=== PATIENT | female | born 1960 | race Caucasian/White ===

== ENCOUNTER 2021-07-06 17:15 | Inpatient (IN) ==
[2021-07-06 19:31] LABS: Basophils % 0.2 %; Eosinophils % 0.1 %; Hematocrit 34.1 % (35.3-44.9); Hemoglobin 12.4 g/dL (11.5-15.4); Immature Granulocytes % 0.4 % (0-4); Lymphocytes # 0.9 K/mcL (0.6-4.6); Lymphocytes % 9.2 %; Mean Corpuscular HGB Conc 36.4 g/dL (31.6-35.5); Mean Corpuscular Hemoglobin 28.5 pg (28.0-33.3); Mean Corpuscular Volume 78.4 fL (83.0-100.0); Monocytes % 10.2 %; Neutrophils # 7.8 K/mcL (1.6-8.9); Platelet Count 395 K/mcL (140-400); Red Blood Count 4.35 M/mcL (3.82-4.97); Segmented Neutrophils % 79.9 %; White Blood Count 9.7 K/mcL (4.3-11.1)
[2021-07-06] MEDS ORDERED: 0.9 % Sodium Chloride 500 ML IVC ONE (19:48)
[2021-07-06] MEDS ORDERED: Ondansetron 4 MG/2 ML VIAL IVP ONE (19:49)
[2021-07-06 20:00] LABS: Alanine Aminotransferase 18 Units/L (7-52); Albumin 4.3 g/dL (3.5-5.7); Albumin/Globulin Ratio 1.9 (1.1-2.2); Alkaline Phosphatase 67 Units/L (34-104); Aspartate Amino Transferase 17 Units/L (13-39); BUN/Creatinine Ratio 24 (6-26); Bilirubin,Direct 0.3 mg/dL (0.0-0.2); Bilirubin,Indirect 1.4 mg/dL (0.0-1.0); Bilirubin,Total 1.7 mg/dL (0.3-1.0); Blood Urea Nitrogen 21 mg/dL (8-23); Carbon Dioxide 28 mEq/L (23-29); Chloride 71 mEq/L (98-107); Globulin 2.3 g/dL (2.4-3.5); Glucose 154 mg/dL (70-105); Osmolality,Calculated 244 (280-300); Potassium 1.9 mEq/L (3.5-5.1); Sodium 114 mEq/L (136-145); Total Protein 6.6 g/dL (6.4-8.9); eGFR For African Americans > 60 (> 60); eGFR For Non-African Americans > 60 (> 60)
[2021-07-06] MEDS ORDERED: Potassium Chloride Elixir 20 MEQ/15 ML UDC PO ONE (20:10)
[2021-07-06 20:23] LABS: Bilirubin,Urine Negative (Negative); Blood,Urine Trace (Negative); Clarity,Urine Clear (Clear); Color,Urine Yellow (Yellow); Glucose,Urine (UA) Normal (Normal); Hyaline Casts,Urine Moderate per lpf (None Seen); Ketones,Urine Trace mg/dL (Negative); Leukocyte Esterase,Urine Negative (Negative); Mucus,Urine Few per lpf (None-Few); Nitrite,Urine Negative (Negative); Protein,Urine 100 mg/dL (Neg-Trace); Renal Epithelial Cells,Urine Few per hpf (None-Few); Specific Gravity,Urine > 1.030 (1.010-1.025); Squamous Epithelial Cell,Urine Few per hpf (None-Few)
[2021-07-06] MEDS ORDERED: 0.9 % Sodium Chloride 1,000 ML IVC ONE (21:03)
[2021-07-06] MEDS ORDERED: Acetaminophen 325 MG TABLET PO PRN (21:04)
[2021-07-06] MEDS ORDERED: Naloxone 0.4 MG/ML INJ IVP PRN (21:04)
[2021-07-06] MEDS ORDERED: *HR* HYDROcodone/Acet 5/325 mg TABLET PO PRN (21:04)
[2021-07-06] MEDS ORDERED: *HR* Promethazine 25 MG/ML VIAL IM PRN (21:04)
[2021-07-06] MEDS ORDERED: *HR* OxyCODONE Immed Rel 5 MG TABLET PO PRN (21:04)
[2021-07-06] MEDS ORDERED: Isovue-370 500 ML BOTTLE IVP ONE (21:12)
[2021-07-06 21:27] LABS: BUN/Creatinine Ratio 28 (6-26); Blood Urea Nitrogen 21 mg/dL (8-23); Calcium 8.9 mg/dL (8.6-10.3); Carbon Dioxide 31 mEq/L (23-29); Chloride 71 mEq/L (98-107); Glucose 127 mg/dL (70-105); Magnesium 1.9 mg/dL (1.6-2.6); Osmolality,Calculated 241 (280-300); Potassium 2.1 mEq/L (3.5-5.1); Sodium 113 mEq/L (136-145); eGFR For African Americans > 60 (> 60); eGFR For Non-African Americans > 60 (> 60)
[2021-07-06] MEDS: Melatonin 3 MG TABLET PO PRN (22:44)
[2021-07-06 23:01] LABS: BUN/Creatinine Ratio 27 (6-26); Blood Urea Nitrogen 19 mg/dL (8-23); Calcium 8.3 mg/dL (8.6-10.3); Carbon Dioxide 27 mEq/L (23-29); Chloride 75 mEq/L (98-107); Glucose 112 mg/dL (70-105); Lipase 30 Units/L (11-82); Osmolality,Calculated 239 (280-300); Potassium 2.7 mEq/L (3.5-5.1); Sodium 113 mEq/L (136-145); eGFR For African Americans > 60 (> 60); eGFR For Non-African Americans > 60 (> 60)
[2021-07-06] MEDS: 0.9 % Sodium Chloride w KCl 40 MEQ/1,000 ML MLS IVC SCH (23:01)
[2021-07-06] MEDS: Ondansetron 4 MG/2 ML VIAL IVP PRN (23:06)
[2021-07-07 06:12] LABS: Basophils % 0.1 %; Eosinophils # 0.1 K/mcL (0.0-0.6); Eosinophils % 1.1 %; Hematocrit 29.3 % (35.3-44.9); Immature Granulocytes % 0.4 % (0-4); Lymphocytes # 2.3 K/mcL (0.6-4.6); Lymphocytes % 23.3 %; Mean Corpuscular HGB Conc 36.9 g/dL (31.6-35.5); Mean Corpuscular Hemoglobin 29.8 pg (28.0-33.3); Mean Corpuscular Volume 80.7 fL (83.0-100.0); Mean Platelet Volume 10.1 fL (9.4-12.4); Monocytes % 10.2 %; Neutrophils # 6.3 K/mcL (1.6-8.9); Platelet Count 323 K/mcL (140-400); Red Blood Count 3.63 M/mcL (3.82-4.97); Red Cell Distribution Width 12.2 % (11.5-14.5); Segmented Neutrophils % 64.9 %; White Blood Count 9.6 K/mcL (4.3-11.1)
[2021-07-07 06:13] LABS: Hemoglobin 10.8 g/dL (11.5-15.4)
[2021-07-07 06:25] LABS: D-Dimer < 215 ng/mLFEU (0-500); Fibrinogen 119 mg/dL (169-393); INR 1.2; Prothrombin Time 12.9 Seconds (9.4-12.1)
[2021-07-07 06:34] LABS: BUN/Creatinine Ratio 20 (6-26); Blood Urea Nitrogen 13 mg/dL (8-23); Calcium 7.9 mg/dL (8.6-10.3); Carbon Dioxide 25 mEq/L (23-29); Chloride 84 mEq/L (98-107); Glucose 98 mg/dL (70-105); Osmolality,Calculated 246 (280-300); Potassium 2.9 mEq/L (3.5-5.1); Sodium 118 mEq/L (136-145); eGFR For African Americans > 60 (> 60); eGFR For Non-African Americans > 60 (> 60)
[2021-07-07] MEDS: *HR* Enoxaparin 40 MG/0.4 ML SYRINGE SQ SCH (06:41)
[2021-07-07] MEDS ORDERED: Ipratropium 1 PUFF INHALER IH PRN (07:31)
[2021-07-07] MEDS: Ascorbic Acid 500 MG TABLET PO SCH (09:11)
[2021-07-07] MEDS: carvediloL 6.25 MG TABLET PO SCH ×2 (09:11→17:10)
[2021-07-07 09:30] LABS: BUN/Creatinine Ratio 18 (6-26); Blood Urea Nitrogen 12 mg/dL (8-23); Calcium 7.9 mg/dL (8.6-10.3); Carbon Dioxide 26 mEq/L (23-29); Chloride 86 mEq/L (98-107); Glucose 93 mg/dL (70-105); Osmolality,Calculated 247 (280-300); Potassium 2.8 mEq/L (3.5-5.1); Sodium 119 mEq/L (136-145); eGFR For African Americans > 60 (> 60); eGFR For Non-African Americans > 60 (> 60)
[2021-07-07] MEDS ORDERED: Potassium Chloride Elixir 20 MEQ/15 ML UDC PO ONE (09:34)
[2021-07-07] MEDS: 0.9 % Sodium Chloride w KCl 40 MEQ/1,000 ML MLS IVC SCH (11:09)
[2021-07-07 14:29] LABS: BUN/Creatinine Ratio 16 (6-26); Blood Urea Nitrogen 12 mg/dL (8-23); Calcium 8.4 mg/dL (8.6-10.3); Carbon Dioxide 25 mEq/L (23-29); Chloride 85 mEq/L (98-107); Glucose 122 mg/dL (70-105); Osmolality,Calculated 247 (280-300); Potassium 3.8 mEq/L (3.5-5.1); Sodium 118 mEq/L (136-145); eGFR For African Americans > 60 (> 60); eGFR For Non-African Americans > 60 (> 60)
[2021-07-07 18:47] LABS: BUN/Creatinine Ratio 22 (6-26); Blood Urea Nitrogen 18 mg/dL (8-23); Calcium 8.2 mg/dL (8.6-10.3); Carbon Dioxide 25 mEq/L (23-29); Chloride 85 mEq/L (98-107); Glucose 119 mg/dL (70-105); Osmolality,Calculated 247 (280-300); Potassium 3.5 mEq/L (3.5-5.1); Sodium 117 mEq/L (136-145); eGFR For African Americans > 60 (> 60); eGFR For Non-African Americans > 60 (> 60)
[2021-07-07] MEDS: 0.9 % Sodium Chloride 1,000 ML IVC SCH (21:25)
[2021-07-07] MEDS: Melatonin 3 MG TABLET PO PRN (21:29)
[2021-07-07] MEDS: Ondansetron 4 MG/2 ML VIAL IVP PRN (21:30)
[2021-07-07 22:48] LABS: BUN/Creatinine Ratio 25 (6-26); Blood Urea Nitrogen 19 mg/dL (8-23); Calcium 8.1 mg/dL (8.6-10.3); Carbon Dioxide 25 mEq/L (23-29); Chloride 85 mEq/L (98-107); Glucose 107 mg/dL (70-105); Osmolality,Calculated 247 (280-300); Potassium 3.3 mEq/L (3.5-5.1); Sodium 117 mEq/L (136-145); eGFR For African Americans > 60 (> 60); eGFR For Non-African Americans > 60 (> 60)
[2021-07-08 03:38] LABS: BUN/Creatinine Ratio 23 (6-26); Blood Urea Nitrogen 16 mg/dL (8-23); Calcium 7.9 mg/dL (8.6-10.3); Carbon Dioxide 24 mEq/L (23-29); Chloride 89 mEq/L (98-107); Glucose 92 mg/dL (70-105); Osmolality,Calculated 251 (280-300); Potassium 3.3 mEq/L (3.5-5.1); Sodium 120 mEq/L (136-145); eGFR For African Americans > 60 (> 60); eGFR For Non-African Americans > 60 (> 60)
[2021-07-08 03:39] LABS: Magnesium 2.1 mg/dL (1.6-2.6)
[2021-07-08 03:46] LABS: Thyroid Stimulating Hormone 0.223 mcIU/mL (0.340-5.600)
[2021-07-08] MEDS: carvediloL 6.25 MG TABLET PO SCH ×2 (07:43→15:16)
[2021-07-08] MEDS: *HR* Enoxaparin 40 MG/0.4 ML SYRINGE SQ SCH (07:44)
[2021-07-08] MEDS: Ascorbic Acid 500 MG TABLET PO SCH (07:44)
[2021-07-08 09:42] LABS: BUN/Creatinine Ratio 18 (6-26); Blood Urea Nitrogen 13 mg/dL (8-23); C-Reactive Protein < 5 mg/L (Less than 10); Calcium 8.1 mg/dL (8.6-10.3); Carbon Dioxide 24 mEq/L (23-29); Chloride 91 mEq/L (98-107); Glucose 99 mg/dL (70-105); Lactate Dehydrogenase 144 Units/L (140-271); Osmolality,Calculated 256 (280-300); Potassium 3.5 mEq/L (3.5-5.1); Sodium 123 mEq/L (136-145); eGFR For African Americans > 60 (> 60); eGFR For Non-African Americans > 60 (> 60)
[2021-07-08 09:57] LABS: Triiodothyronine (T3) Free 3.87 pg/mL (2.50-3.90)
[2021-07-08 10:02] LABS: Ferritin 180 ng/mL (10-120)
[2021-07-08] MEDS: 0.9 % Sodium Chloride 1,000 ML IVC SCH (15:16)
[2021-07-09] MEDS: *HR* Enoxaparin 40 MG/0.4 ML SYRINGE SQ SCH (05:16)
[2021-07-09 07:45] LABS: BUN/Creatinine Ratio 16 (6-26); Blood Urea Nitrogen 12 mg/dL (8-23); Carbon Dioxide 25 mEq/L (23-29); Chloride 97 mEq/L (98-107); Glucose 87 mg/dL (70-105); Magnesium 1.9 mg/dL (1.6-2.6); Osmolality,Calculated 267 (280-300); Phosphorous 2.7 mg/dL (2.7-4.5); Potassium 3.2 mEq/L (3.5-5.1); Sodium 129 mEq/L (136-145); eGFR For African Americans > 60 (> 60); eGFR For Non-African Americans > 60 (> 60)
[2021-07-09 07:55] VITALS: BP 115/61; PULSE 69; TEMP 98.1; O2SAT 97
[2021-07-09] MEDS: Ascorbic Acid 500 MG TABLET PO SCH (08:18)
[2021-07-09] MEDS: carvediloL 6.25 MG TABLET PO SCH (08:18)
[2021-07-09] MEDS ORDERED: Potassium Chloride Elixir 20 MEQ/15 ML UDC PO ONE (08:28)
[2021-07-09] MEDS ORDERED: hydrOXYzine pamoate 25 MG CAPSULE PO SCH (09:00)
== END 2021-07-09 12:24 | disposition home or self-care (01) | DRG 178 ==
LOC: 2NNU 17:15 → EMEROOARM 17:15 → SUATTDRO 21:23 → 2NNU 21:29 → 3NENU 07-08 05:06
PROVIDERS: ADMIT Internal Medicine; ATTEND Internal Medicine